=== PATIENT | male | born 1995 | race Caucasian/White ===

== ENCOUNTER 2020-07-25 02:24 | Emergency (ER) | payer BC, OTHER ==
[~2020-07-25] VITALS: Ht 170.2 cm; Wt 77.1 kg
[2020-07-25 02:37] VITALS: BP 152/110
[2020-07-25] MEDS ORDERED: NACL 0.9% 1,000 ML IV ONE (02:55)
[2020-07-25] MEDS ORDERED: KETOROLAC 30 MG/ML VIAL IVP ONE (02:55)
[2020-07-25 04:02] VITALS: BP 138/89
== END 2020-07-25 04:03 | disposition home or self-care (01) ==
LOC: MED 02:24
DX: R07.9 Chest pain, unspecified (principal); T43.625A Adverse effect of amphetamines, initial encounter; R06.02 Shortness of breath; F17.210 Nicotine dependence, cigarettes, uncomplicated; Y92.89 Other specified places as the place of occurrence of the external cause
CPT/HCPCS: 93005; 96361; 96374; 99283; J1885; J7030